=== PATIENT | female | born 1975 | race Caucasian/White ===

== ENCOUNTER 2017-12-22 18:46 | Emergency (ER) | payer OTHER ==
[~2017-12-22] VITALS: Ht 160 cm; Wt 99.3 kg
[~2017-12-22 18:46] MED LIST: FLEXERIL10 MG PO; LISINOPRIL-HCT1 EAC3 PO; NOHOMEMEDS; NORVASC5 MG PO; PANTOPRAZOLE SO40 MG PO; PERCOCET 5/31 TABLET PO; PRAVASTATIN SOD20 MG PO; VESICARE5 MG PO
[2017-12-22 21:39] LABS: HEMATOCRIT 40.6 % (36.0-46.0); HEMOGLOBIN 13.7 G/DL (11.9-15.5); MCH 29.8 PG (29.0-34.0); MCHC 33.7 G/DL (30.0-36.0); MCV 88.5 FL (83-99); PLATELET COUNT 495 K/uL (156-360); RBC DIS.WIDTH-CV 11.7 % (11.8-14.6); RBC DIS.WIDTH-SD 37.7 % (39-53); RED BLOOD COUNT 4.59 M/uL (3.80-5.20)
[2017-12-22 22:07] LABS: CHLORIDE 100 mEq/L (99-109); POTASSIUM 3.8 mEq/L (3.7-5.4); SODIUM 137 mEq/L (136-147)
[2017-12-22 22:09] LABS: GLUCOSE 85 mg/dL (70-99)
[2017-12-22 22:13] LABS: CREATININE 0.9 mg/dL (0.6-1.3); GFR ESTIMATE (CALCULATED) > 59 mL/min/
[2017-12-22 22:14] LABS: UREA NITROGEN (BUN) 13 mg/dL (9-23)
[2017-12-22 23:05] LABS: ALBUMIN 4.2 g/dL (3.2-4.8)
[2017-12-22 23:07] LABS: TOTAL PROTEIN 7.8 g/dL (6.4-8.3)
[2017-12-22 23:09] LABS: TOTAL BILIRUBIN 0.3 mg/dL (0.0-1.0)
[2017-12-22 23:10] LABS: ALKALINE PHOSPHATASE 80 IU/L (3-129)
[2017-12-22 23:13] LABS: ALT (GPT) 13 IU/L (3-49); AST (GOT) 13 IU/L (2-34); DIRECT BILIRUBIN 0.1 mg/dL (0.0-0.3)
[2017-12-22 23:14] LABS: LIPASE 27 U/L (1.0-51.0)
[2017-12-22 23:19] LABS: QUANTITATIVE HCG < 4.0 MIU/ML
[2017-12-22 23:39] LABS: APPEARANCE CLOUDY ((CLEAR)); BILIRUBIN NEGATIVE; BLOOD NEGATIVE; COLOR YELLOW ((YELLOW)); GLUCOSE (STRIP) NEGATIVE; KETONES NEGATIVE; LEUKOCYTES NEGATIVE; NITRITE NEGATIVE; PROTEIN (STRIP) 30; SPECIFIC GRAVITY 1.025 (1.000-1.030)
[2017-12-23 00:05] LABS: BACTERIA 3+ /HPF; EPITHELIAL CELLS 3+ /HPF; MUCUS 4+ /LPF; RED BLOOD CELLS 0-5 /HPF (0-5); UCUL ADDED? YES; WHITE BLOOD CELLS 0-5 /HPF (0-5)
[2017-12-23] MEDS ORDERED: PREDNISONE20 MG PO (01:15)
[2017-12-23] MEDS ORDERED: VENTOLIN HFA18 GM IH (01:15)
[2017-12-23] MEDS ORDERED: ZITHROMAX Z-PA250 MG PO (01:16)
[2017-12-23 01:31] VITALS: BP 146/85
== END 2017-12-23 01:33 | disposition home or self-care (01) ==
LOC: EME 18:46
PROVIDERS: Physician Assistant
DX: J40 Bronchitis, not specified as acute or chronic (principal); J02.9 Acute pharyngitis, unspecified; N83.201 Unspecified ovarian cyst, right side; K57.30 Diverticulosis of large intestine without perforation or abscess without bleeding; E78.5 Hyperlipidemia, unspecified; I10 Essential (primary) hypertension; K21.9 Gastro-esophageal reflux disease without esophagitis
CPT/HCPCS: 71046; 71260; 74177; 80048; 80076; 81003; 83690; 84702; 85027; 87086; 87502; 99281; 99285; J7030; J7512